=== PATIENT | female | born 1950 | race Caucasian/White ===

== ENCOUNTER 2019-01-17 07:45 | Day surgery (SDC) | payer MEDICARE, OTHER ==
[~2019-01-17] VITALS: Ht 167.6 cm; Wt 69.4 kg
[~2019-01-17 07:45] MED LIST: ASPIRIN EC81 MG PO; CALCIUM 600 +1 EAC3 PO; EFFEXOR XR37.5 MG PO; EVISTA60 MG PO; LOVASTATIN40 MG PO; MULTI VITAMIN1 EACH PO; PROMETHAZINE HC25 M1 PO
--- NOTE | 2019-01-17 09:31 | NUR ---
01/17/19 0930 Dary Ayala 4528 PT ARRIVED TO PACU ASLEEP, PT WAKES TO TACTILE STIMULI AND IS REOREINTED TO PACU. PT BACK TO SLEEP. RN ENCOUARGES DEEP BREATHING OFF AND ON.
--- NOTE | 2019-01-18 05:48 | OR ---
[facility] [address] [place], [place] [address] Signed DATE OF OPERATION: 01/17/2019 SURGEON: Celia Schaefer MD PREOPERATIVE DIAGNOSES: 1. Personal history of colonic polyps (2006). 2. Maternal grandmother with colon cancer at age 94. 3. Mother with colonic polyps. 4. Diverticulosis. 5. External hemorrhoids/skin tags. POSTOPERATIVE DIAGNOSES: 1. A 4 mm polyp at 22 cm. 2. Opzokai-tx-luajvjhg sigmoid diverticulosis. 3. Moderate external hemorrhoids/skin tags. PROCEDURE: Colonoscopy with hot biopsy. ESTIMATED BLOOD LOSS: None. INDICATIONS: Norma is a 68-year-old female, who came for followup colonoscopy. She had her initial sigmoidoscopy back in 1983. She then had an adenomatous polyp removed at 25 cm in 2006. She had another colonoscopy in 2013 and it was unremarkable. We know that her maternal grandmother had colon cancer at age 94. Her mother also had colonic polyps removed. Norma has diverticulosis along with external hemorrhoids/skin tags. In the meantime, she says she is doing great. She has no lower GI complaints. I met with Norma in the office and we reviewed all the above findings in detail. She understands the nature of the colonoscopy along with its risks including, but not limited to gas, bloating, crampy abdominal pain, bleeding, perforation requiring surgery, and missed diagnosis. She also recalls the need for IV conscious sedation. She had expressed understanding and wished to proceed. PROCEDURE NOTE: Norma was taken into our endoscopy suite and placed in the left lateral decubitus position. She was given a total of 7 mg of Versed and 150 mcg of fentanyl to cover the case. She always gets severe nausea with anesthetics. We gave her Zofran 8 mg IV and Phenergan 12.5 mg IV preop. We did that in 2013 and it worked out quite nicely. We Electronically Signed By: CELIA SCHAEFER MD 01/18/19 0548 PATIENT NAME: NORMA RICKETTS OPERATIVE REPORT DATE OF : 52 REPORT #: [id number] PHYSICIAN: CELIA SCHAEFER MD PCP: JUAN FRANCISCO ANG REPORT IS CONFIDENTIAL AND NOT TO BE RELEASED WITHOUT AUTHORIZATION [facility] [address] [place], [place] [address] Signed went ahead and repeated that today. After this, a digital rectal exam was performed and sure enough she has moderate external hemorrhoids. She has good sphincter tone. No masses. The adult colonoscope was introduced and advanced all around into the cecum under direct visualization of camera without difficulty. Her prep was quite excellent. We could easily see the appendiceal orifice and the ileocecal valve. The scope was slowly withdrawn. Pictures were taken throughout for photodocumentation. We found just a tiny sessile 4 mm polypoid looking lesion at 22 cm. It was easily removed with a hot biopsy forceps. She does have sigmoid diverticulosis. They were lxlmqdx-ch-rycbkmhn in size, cqxpuan-sx-yciemjpz in number, and scattered about. The rectum was unremarkable. Upon retroflexion of the scope, there was no additional pathology noted. After this, the gas was suctioned out and the colonoscope removed. Norma tolerated the procedure quite well. RECOMMENDATIONS: I will see Norma back in my office in 7 to 14 days to review her results. She can resume aspirin and NSAIDs in 1 week. Her other chronic medications, she could resume today. MD KHADIJAH Arce/MIRL /[id number] cc: MATEO Joaquin MD Copies: CELIA SCHAEFER MD ~ Electronically Signed By: CELIA SCHAEFER MD 01/18/19 0548 PATIENT NAME: NORMA RICKETTS OPERATIVE REPORT DATE OF : 52 REPORT #: [id number] PHYSICIAN: CELIA SCHAEFER MD PCP: JUAN FRANCISCO ANG REPORT IS CONFIDENTIAL AND NOT TO BE RELEASED WITHOUT AUTHORIZATION
--- NOTE | 2019-01-18 15:22 | PATH ---
[facility] [address] [place], [place] [address] Signed SPECIMEN(S): A COLON POLYP AT 22 CM SPECIMEN SOURCE: A. COLON POLYP AT 22 CM CLINICAL HISTORY: History of adenomatous polyp. MICROSCOPIC DESCRIPTION: Histologic sections of all submitted blocks are examined by light microscopy. These findings, together with the gross examination, support the pathologic diagnosis. FINAL PATHOLOGIC DIAGNOSIS: Colon, polyp at 22 cm, polypectomy: - Colonic mucosa with no histopathologic abnormality, see comment. - Negative for dysplasia or malignancy. COMMENT: Sections of the specimen submitted as "colon polyp at 22 cm" demonstrates benign colonic mucosa with a focal mucosal lymphoid aggregate. Mucosal lymphoid aggregates can sometimes be seen as polypoid masses during colonoscopy. There is no dysplasia or malignancy identified. NAL:cml:C2NR GROSS DESCRIPTION: The specimen, labeled "SA, colon polyp at 22 cm," is received in formalin and consists of a single 0.3 cm, erickson-brown, polypoid fragment. The specimen is entirely submitted in cassette (A1). AM (under the direct supervision of a pathologist) The Gross Description was prepared using a voice recognition system. The report was reviewed for accuracy; however, sound-alike word errors, addition and/or deletions may occur. If there is any question about this report, please contact Client Services. PERFORMING LABORATORY: The technical component was performed by [facility], [address] [place] [id number] (Department Director: Karly Cutler MD; CLIA# [id number]). [facility], [address] [address] (Department Director: Vikash Guillen MD; CLIA# [id number]). PATIENT NAME: VALENTINE RICKETTS PATHOLOGY DATE OF : 52 REPORT #: [id number] PHYSICIAN: ERIS PATHOLOGY PCP: JUAN FRANCISCO ANG REPORT IS CONFIDENTIAL AND NOT TO BE RELEASED WITHOUT AUTHORIZATION [address] [place], [place] [address] Signed Diagnostician: Carly Ayala MD Pathologist Electronically Signed 01/18/2019 Copies: ~ PATIENT NAME: VALENTINE RICKETTS PATHOLOGY DATE OF : 52 REPORT #: [id number] PHYSICIAN: ERIS PATHOLOGY PCP: JUAN FRANCISCO ANG REPORT IS CONFIDENTIAL AND NOT TO BE RELEASED WITHOUT AUTHORIZATION
== END 2019-01-17 10:13 | disposition home or self-care (01) ==
LOC: DS 07:45 → OPS 07:45 → DS 07:49 → OPS 09:00 → DS 09:00 → OPS 10:13
PROVIDERS: Colon & Rectal Surgery
PROC: 0DBE8ZZ Excision of Large Intestine, Via Natural or Artificial Opening Endoscopic (ICD-10-PCS; principal; 2019-01-17 09:00)
DX: Z12.11 Encounter for screening for malignant neoplasm of colon (principal); K63.5 Polyp of colon; K57.30 Diverticulosis of large intestine without perforation or abscess without bleeding; K64.4 Residual hemorrhoidal skin tags; J45.909 Unspecified asthma, uncomplicated; G47.33 Obstructive sleep apnea (adult) (pediatric); E78.5 Hyperlipidemia, unspecified; M85.80 Other specified disorders of bone density and structure, unspecified site; M19.90 Unspecified osteoarthritis, unspecified site; F32.9 Major depressive disorder, single episode, unspecified; Z86.010 Personal history of colon polyps; Z83.71 Family history of colonic polyps; Z80.0 Family history of malignant neoplasm of digestive organs; Z98.890 Other specified postprocedural states; Z88.8 Allergy status to other drugs, medicaments and biological substances; Z91.041 Radiographic dye allergy status; Z79.82 Long term (current) use of aspirin; Z79.899 Other long term (current) drug therapy
CPT/HCPCS: J2250; J2405; J2550; J3010; J7121